=== PATIENT | female | born 1975 | race Caucasian/White ===

== ENCOUNTER 2018-11-06 17:54 | Emergency (ER) | payer MEDICAID ==
[~2018-11-06] VITALS: Wt 157.0 kg
--- NOTE | 2018-11-06 20:15 | ERD ---
ER Documentation Chief Complaint Chief Complaint AP X 1 WEEK, VAGIANL BLEEDING INTERMITTENT X MOS HPI This is a 43-year-old female presents for abdominal pain intermittent for the last week. Pain is mainly localized to the right upper quadrant, she states that she has had vaginal bleeding intermittently for the last several months, since May which is the last time she had a regular period. Currently she denies any pelvic pain, she has not had any vaginal discharge. She denies nausea or vomiting. She has not had any chest pain or ROS All systems reviewed and are negative except as per history of present illness. Medications Home Meds Active Scripts Famotidine* (Pepcid*) 20 Mg Tablet, 20 MG PO BID for 10 Days, TAB Prov:BRUCE SOLO MD 11/06/18 Allergies Allergies: Coded Allergies: No Known Allergy (Verified , 12/21/10) PMhx/Soc History of Surgery: Yes (gallstone) Anesthesia Reaction: No Hx Neurological Disorder: No Hx Respiratory Disorders: No Hx Cardiac Disorders: No Hx Psychiatric Problems: No Hx Miscellaneous Medical Probl: Yes (unknown throid prob) Hx Alcohol Use: No Hx Substance Use: No Hx Tobacco Use: No Physical Exam Vitals Vital Signs Date Temp Pulse Resp B/P (MAP) Pulse Ox O2 O2 Flow FiO2 Time Delivery Rate 11/06/18 99.9 84 18 166/84 99 17:57 (111) Physical Exam Const: No acute distress Head: Atraumatic Eyes: Normal Conjunctiva ENT: Normal External Ears, Nose and Mouth. Neck: Full range of motion. No meningismus. Resp: Clear to auscultation bilaterally Cardio: Regular rate and rhythm, no murmurs Abd: Soft, mild tenderness to the right upper quadrant, no rebound or guarding, non distended, no McBurney's point tenderness. Normal bowel sounds Skin: No petechiae or rashes Back: No midline or flank tenderness Ext: No cyanosis, or edema Neur: Awake and alert Psych: Normal Mood and Affect Result Diagram: 11/06/18201911/06/182019 Results 24 hrs Laboratory Tests Test 11/06/18 20:18 11/06/18 20:20 11/06/18 20:26 Urine Color YELLOW Urine Clarity SLIGHTLY CLOUDY Urine pH 6.0 Urine Specific [place] 1.019 Urine Ketones NEGATIVE mg/dL Urine Nitrite NEGATIVE mg/dL Urine Bilirubin NEGATIVE mg/dL Urine Urobilinogen NEGATIVE mg/dL Urine Leukocyte Esterase NEGATIVE Ivis/ul Urine Microscopic RBC 9 /HPF Urine Microscopic WBC 1 /HPF Urine Squamous Epithelial Cells FEW /HPF Urine Bacteria FEW /HPF Urine Hemoglobin 2+ mg/dL Urine Glucose NEGATIVE mg/dL Urine Total Protein NEGATIVE mg/dl White Blood Count 13.9 10^3/ul Red Blood Count 4.62 10^6/ul Hemoglobin 13.7 g/dl Hematocrit 41.8 % Mean Corpuscular Volume 90.5 fl Mean Corpuscular Hemoglobin 29.7 pg Mean Corpuscular 32.8 g/dl Hemoglobin Concent Red Cell Distribution Width 14.1 % Platelet Count 327 10^3/UL Mean Platelet Volume 10.3 fl Immature Granulocytes % 0.600 % Neutrophils % 52.6 % Lymphocytes % 37.1 % Monocytes % 6.8 % Eosinophils % 2.2 % Basophils % 0.7 % Nucleated Red Blood Cells % 0.0 /100WBC Immature Granulocytes # 0.090 10^3/ul Neutrophils # 7.3 10^3/ul Lymphocytes # 5.2 10^3/ul Monocytes # 0.9 10^3/ul Eosinophils # 0.3 10^3/ul Basophils # 0.1 10^3/ul Nucleated Red Blood Cells # 0.0 10^3/ul Sodium Level 142 mmol/L Potassium Level 4.1 mmol/L Chloride Level 107 mmol/L Carbon Dioxide Level 26 mmol/L Anion Gap 9 Blood Urea Nitrogen 14 mg/dl Creatinine 0.56 mg/dl Est Glomerular Filtrat > 60 mL/min Rate mL/min Glucose Level 111 mg/dl Calcium Level 9.1 mg/dl Total Bilirubin 0.3 mg/dl Direct Bilirubin 0.00 mg/dl Indirect Bilirubin 0.3 mg/dl Aspartate Amino Transf (AST/SGOT) 39 IU/L Alanine 22 IU/L Aminotransferase (ALT/SGPT) Alkaline Phosphatase 98 IU/L Total Protein 8.1 g/dl Albumin 4.4 g/dl Globulin 3.70 g/dl Albumin/Globulin Ratio 1.18 POC Beta HCG, Qualitative NEGATIVE Procedures/MDM This is a 43-year-old female presents for evaluation of abdominal pain.. On exam the pain since pain was localized to her epigastric area, she had no pelvic pain, and no infectious symptoms, I have a very low suspicion for pelvic inflammatory disease. Her CT abdomen pelvis showed no acute intra-abdominal findings, it did show a 10 cm cyst, and her right adnexal area. 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 EKG: Rate/Rhythm: Normal Sinus Rhythm QRS, ST, T-waves: No changes consistent w/ acute ischemia Impression: No evidence of ischemia or arrhythmia Departure Diagnosis: Primary Impression: Abdominal pain Abdominal location: unspecified location Qualified Codes: R10.9 - Unspecified abdominal pain Additional Impression: Ovarian cyst Laterality: right Qualified Codes: N83.201 - Unspecified ovarian cyst, right side Condition: Stable BRUCE SOLO MD Nov 06, 2018 20:15
[2018-11-06] MEDS ORDERED: FAMO-96 PO (22:09)
[2018-11-06 22:22] VITALS: BP 154/76; PULSE 81; RESP 18
== END 2018-11-06 22:23 | disposition home or self-care (01) ==
LOC: E/R 17:54
DX: N83.201 Unspecified ovarian cyst, right side (principal)
CPT/HCPCS: 36415; 74176; 80053; 81001; 81025; 84702; 84703; 85025; 93005; Z7502